=== PATIENT | male | born 1955 | race Caucasian/White ===

== ENCOUNTER → 2020-05-15 | Outpatient (CLI) | payer MEDICARE, OTHER ==
--- NOTE | 2020-05-15 12:16 | RADIOLOGY REPORT (SQ) ---
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 NUMBER OF VIEWS: Two views. TECHNIQUE: Two radiographic images acquired of the left femur to include hip and knee in at least on e projection. LIMITATIONS: None. FINDINGS: MINERALIZATION: Normal. BONES: There appears to be a lytic lesion in the distal femoral metaphysis medially. SOFT TISSUES: There appears to be a large soft tissue mass in the upper thigh. OTHER: No other significant finding. IMPRESSION: There appears to be a lytic lesion in the cortex of the distal femoral metaphysis. Larg e soft tissue mass in the upper thigh. TECHNICAL DOCUMENTATION: JOB ID: [id number] 2010 [employer]- All Rights Reserved Reading location - IP/workstation name: [email or web address]
== END ==
LOC: RAD 11:16
PROVIDERS: ATTEND Internal Medicine Hematology & Oncology
DX: C79.2 Secondary malignant neoplasm of skin (principal)

== ENCOUNTER → 2020-08-27 | Outpatient (CLI) | payer MEDICARE, OTHER ==
--- NOTE | 2020-08-27 14:06 | RADIOLOGY REPORT (SQ) ---
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 TECHNIQUE: Dynamic and static flores scale and color images acquired of both lower extremity venous sy stems. Selected spectral images acquired with additional compression and augmentation maneuvers. Imag es stored on PACS. LIMITATIONS: None. FINDINGS: RIGHT LEG COMMON FEMORAL AND FEMORAL: Normal phasicity, compression and augmentation. No visualized echogenic m aterial on flores scale. No defects on color images. POPLITEAL: Normal compression and augmentation. No visualized echogenic material on flores scale. No de fects on color images. CALF VESSELS: Normal compression and augmentation. No visualized echogenic material on flores scale. No defects on color image. GSV AND SSV: Normal compression. No visualized echogenic material on flores scale. No defects on color images. ANY DEEP VENOUS INSUFFICIENCY: No. ANY EVIDENCE OF POPLITEAL CYST: No. OTHER: No other significant finding. LEFT LEG COMMON FEMORAL AND FEMORAL: Normal phasicity, compression and augmentation. No visualized echogenic m aterial on flores scale. No defects on color images. POPLITEAL: Normal compression and augmentation. No visualized echogenic material on flores scale. No de fects on color images. CALF VESSELS: Normal compression and augmentation. No visualized echogenic material on flores scale. No defects on color images. GSV AND SSV: Normal compression. No visualized echogenic material on flores scale. No defects on color images. ANY DEEP VENOUS INSUFFICIENCY: No. ANY EVIDENCE POPLITEAL CYST: No. OTHER: No other significant finding. IMPRESSION: NO EVIDENCE DVT OR SVT IN EITHER LEG. TECHNICAL DOCUMENTATION: JOB ID: [id number] [employer]%- All Rights Reserved Reading location - IP/workstation name: [email or web address]
== END ==
LOC: SP 07:56
PROVIDERS: ATTEND Internal Medicine Hematology & Oncology
DX: C79.9 Secondary malignant neoplasm of unspecified site (principal); M79.89 Other specified soft tissue disorders
CPT/HCPCS: 93970